=== PATIENT | female | born 1990 | race Caucasian/White ===

== ENCOUNTER 2022-03-06 20:05 | Emergency (ER) | payer SELFPAY ==
--- NOTE | 2022-03-06 21:08 | RAD REPORT ---
EXAM DESCRIPTION: RAD - Shoulder 1 View - 03/06/2022 8:39 pm CLINICAL HISTORY: PAIN COMPARISON: No comparisons FINDINGS/IMPRESSION: Left inferior and presumably anterior shoulder dislocation. Chronic either post traumatic or developmental deformity of the glenoid and humeral head is noted. No acute fracture.
[2022-03-06] MEDS ORDERED: MORPHINE 4 MG/ML SYR ONE (23:14)
[2022-03-06] MEDS ORDERED: ONDANSETRON 4 MG/2 ML VIAL ONE (23:14)
[2022-03-06] MEDS ORDERED: propofoL 200 MG/20 ML VIAL IV ONE ×2 (23:15→23:38)
[2022-03-06] MEDS ORDERED: MEPERIDINE HCL 25 MG/ML SYR ONE (23:56)
[2022-03-07] MEDS ORDERED: propofoL 200 MG/20 ML VIAL IV ONE (01:22)
[2022-03-07] MEDS ORDERED: NA CHLORIDE 0.9% 1,000 ML ONE (01:30)
[2022-03-07] MEDS ORDERED: MORPHINE 4 MG/ML SYR ONE ×3 (02:09→08:14)
--- NOTE | 2022-03-07 02:21 | ER ---
Nurse's Notes [facility] Name: Mary Kay Liu Age: 31 yrs Sex: Female : 1990 Arrival Date: 03/06/2022 Time: 20:13 Bed 20 Private MD: Diagnosis: Recurrent dislocation, left shoulder Presentation: 03/06 20:26 Chief complaint: Patient states: "I was carrying Laundry and I slipped. My shoulder is tw5 in a lot of pain.". Coronavirus screen: Vaccine status: Patient reports receiving the 2nd dose of the covid vaccine. [employer]. Ebola Screen: Patient negative for fever greater than or equal to 101.5 degrees Fahrenheit, and additional compatible Ebola Virus Disease symptoms Patient denies exposure to infectious person. Patient denies travel to an Ebola-affected area in the 21 days before illness onset. Initial Sepsis Screen: Does the patient meet any 2 criteria? No. Patient's initial sepsis screen is negative. Does the patient have a suspected source of infection? No. Patient's initial sepsis screen is negative. Risk Assessment: Do you want to hurt yourself or someone else? Patient reports no desire to harm self or others. Onset of symptoms. 20:26 Method Of Arrival: Ambulatory tw5 20:26 Acuity: RAYMOND 4 tw5 Triage Assessment: 20:28 General: Appears in no apparent distress. uncomfortable, Behavior is calm, cooperative, tw5 appropriate for age. Pain: Pain currently is 9 out of 10 on a pain scale. 03/07 09:03 Injury Description: Deformity. 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 - Social history:: Smoking status: Patient denies any tobacco usage or history of. - Family history:: not pertinent. - Hospitalizations: : No recent hospitalization is reported. Screenin:33 Abuse screen: Denies threats or abuse. Nutritional screening: No deficits noted. 1 Tuberculosis screening: No symptoms or risk factors identified. Fall Risk None identified. Assessment: 20:33 General: Appears in no apparent distress. Pain: Complains of pain in left shoulder. bh1 Cardiovascular: No deficits noted. Respiratory: No deficits noted. Musculoskeletal: Reports pain in left shoulder. 23:15 Reassessment: ERP at bedside performing conscious sedation - X ray at bedside. ld1 23:40 Reassessment: Xray confirmed shoulder was reduced. Pt verbalizing pain - notified ERP. ld1 See [facility] for orders. 03/07 00:29 Reassessment: Patient appears in no apparent distress at this time. Patient and/or jb4 family updated on plan of care and expected duration. Pain level reassessed. Patient is alert, oriented x 3, equal unlabored respirations, skin warm/dry/pink. Pt back from X-ray. 01:00 Reassessment: Patient appears in no apparent distress at this time. Patient and/or jb4 family updated on plan of care and expected duration. Pain level reassessed. Patient is alert, oriented x 3, equal unlabored respirations, skin warm/dry/pink. 02:10 Reassessment: Patient appears in no apparent distress at this time. Patient and/or jb4 family updated on plan of care and expected duration. Pain level reassessed. Patient is alert, oriented x 3, equal unlabored respirations, skin warm/dry/pink. Pt is now A\\T\\Ox4. 03:19 Reassessment: Patient and/or family updated on plan of care and expected duration. Pain ll3 level reassessed. Patient is alert, oriented x 3, equal unlabored respirations, skin warm/dry/pink. c/o pain 10/10, Dr. Solitario notified, medicated as ordered, tolerated well. 04:30 Reassessment: Patient and/or family updated on plan of care and expected duration. Pain ll3 level reassessed. Patient is alert, oriented x 3, equal unlabored respirations, skin warm/dry/pink. 05:30 Reassessment: Patient and/or family updated on plan of care and expected duration. Pain ll3 level reassessed. Patient is alert, oriented x 3, equal unlabored respirations, skin warm/dry/pink. 06:06 Reassessment: Nurse to Nurse report given to CHANTELLE Lima for patient transfer to [address] ER. 07:05 Reassessment: report received from CHANTELLE Brown. Transportation EMS should be here around 1 0730 for transfer. 08:00 Reassessment: No changes from previously documented assessment. Patient and/or family ll1 updated on plan of care and expected duration. Pain level reassessed. Patient is alert, oriented x 3, equal unlabored respirations, skin warm/dry/pink. Musculoskeletal: Circulation, motion, and sensation intact. Capillary refill < 3 seconds. Vital Signs: 03/06 20:23 BP 121 / 69; Pulse 91; Pulse Ox 96% on R/A; tw5 22:20 BP 128 / 68; Pulse 76; Resp 18; Temp 97.3; Pulse Ox 99% on R/A; bh1 23:13 BP 110 / 66; Pulse 93; Resp 18; Pulse Ox 98% on R/A; ld1 23:15 BP 101 / 61; Pulse 88; Resp 11; Pulse Ox 95% on R/A; ld1 23:30 BP 106 / 68; Pulse 89; Resp 20; Pulse Ox 97% on R/A; ld1 23:36 BP 106 / 68; Pulse 81; Resp 17; Pulse Ox 96% ; ld1 23:45 BP 104 / 83; Pulse 101; Resp 16; Pulse Ox 97% on R/A; ld1 23:53 BP 104 / 83; Pulse 101; Resp 18; Pulse Ox 100% on R/A; bh1 23:59 BP 104 / 83; Pulse 75; Resp 16; Pulse Ox 100% on R/A; ld1 03/07 01:00 BP 118 / 77; Pulse 73; Resp 16; Temp 97.8(TE); Pulse Ox 100% on R/A; jb4 02:10 BP 100 / 67; Pulse 59; Resp 18; Pulse Ox 97% on R/A; jb4 03:05 Weight 49.9 kg; mw2 03:19 BP 116 / 79; Pulse 65; Resp 14; Pulse Ox 98% on R/A; ll3 04:30 BP 103 / 64; Pulse 59; Resp 15; Pulse Ox 99% on R/A; ll3 05:30 BP 105 / 83; Pulse 58; Resp 16; Pulse Ox 99% on R/A; ll3 06:42 BP 111 / 74; Pulse 60; Resp 16; Pulse Ox 99% on R/A; ll3 07:57 BP 104 / 66; Pulse 54; Resp 15; Pulse Ox 99% ; ll1 09:02 BP 106 / 71; Pulse 54; Resp 16; Pulse Ox 100% on R/A; ll1 ED Course: 03/06 20:13 Patient arrived in ED. as 20:14 Rafael Solitario MD is Attending Physician. rn 20:17 Tarah Deleon, CHANTELLE is Primary Nurse. ld1 20:28 Triage completed. tw5 20:28 Arm band placed on. tw5 20:33 No apparent distress. Awaiting radiology results. bh1 20:33 Patient has correct armband on for positive identification. Pulse ox on. NIBP on. bh1 20:33 No provider procedures requiring assistance completed. Patient did not have IV access bh1 during this emergency room visit. 20:41 XRAY Shoulder (1 View) In Process Unspecified. EDMS 21:10 Missed attempt(s): 20 gauge in right antecubital area. ld1 21:16 Missed attempt(s): 20 gauge in right forearm. 22 gauge in right wrist. Bleeding bh1 controlled, band aid applied, catheter tip intact. 21:38 Missed attempt(s): 20 gauge in right antecubital area. mh5 21:39 Bed in low position. Call light in reach. Side rails up X 1. Warm blanket given. mh5 22:20 No apparent distress. Awaiting: IV FOR CONSCIOUS SEDATION. bh1 22:59 Missed attempt(s): 22 gauge in right forearm. Missed attempt(s): 24 gauge in right hand.lp1 23:00 Inserted saline lock: 20 gauge in left EJ, using aseptic technique. ld1 23:48 Shoulder 1 View In Process Unspecified. EDMS 23:54 Appears restless. Appears tearful. Awaiting for x-ray. 1 03/07 00:27 Shoulder 1 View In Process Unspecified. EDMS 02:34 Shoulder 1 View In Process Unspecified. EDMS 03:05 Report given to CHANTELLE Brown. jb4 03:09 initiated a transfer with [facility]. Phone kept ringing no one mw2 answered. 03:25 initiated a transfer with Cassandra from [facility] [place]. mw2 05:03 [facility] denied the transfer. mw2 05:03 initiated a transfer with Bobbi from [facility]. mw2 06:08 [facility] ETA 1 hour 30 minutes. mw2 06:09 Shoulder Left Wo Con In Process Unspecified. EDMS 09:11 Attending Physician role handed off by Rafael Solitario MD ll1 09:11 Primary Nurse role handed off by Tarah Deleon, CHANTELLE ll1 09:11 Mitchell Hopson, CHANTELLE is Primary Nurse. ll1 Administered Medications: 03/06 23:10 Drug: morphine 4 mg Route: IVP; Infused Over: 4 mins; Site: left jugular; ld1 23:53 Follow up: Response: No adverse reaction 1 23:10 Drug: Zofran (Ondansetron) 4 mg Route: IVP; Site: left jugular; ld1 23:48 Follow up: Response: No adverse reaction [facility] 23:10 Drug: Propofol 100 mg Route: IVP; Site: left jugular; ld1 23:36 Follow up: BP 106 / 68; Pulse 81 bpm; Resp 17 bpm; Pulse Ox 96% ; Response: No adverse ld1 reaction 23:53 Drug: Demerol (meperidine) 12.5 mg Route: IVP; Site: left jugular; 1 23:53 Follow up: Response: No adverse reaction [facility] 03/07 01:20 Drug: NS 0.9% 1000 ml Route: IV; Rate: 1 bolus; Site: left jugular; jb4 02:30 Follow up: Response: No adverse reaction; IV Status: Completed infusion jb4 01:53 Drug: Propofol 130 mg Route: IVP; Site: left jugular; jb4 02:29 Follow up: Response: No adverse reaction jb4 02:10 Drug: morphine 4 mg Route: IVP; Infused Over: 4 mins; Site: left jugular; jb4 02:20 Follow up: Response: No adverse reaction; Marked relief of symptoms; Pain is decreased jb4 03:19 Drug: Demerol (meperidine) 25 mg Route: IVP; Site: left jugular; ll3 06:38 Follow up: Response: No adverse reaction ll3 05:31 Drug: fentaNYL (PF) 50 mcg Route: IVP; Site: left jugular; tw5 06:38 Follow up: Response: No adverse reaction ll3 05:55 Drug: fentaNYL (PF) 50 mcg Route: IVP; Site: left jugular; tw5 06:48 Follow up: Response: No adverse reaction ll3 06:48 Drug: morphine 4 mg Route: IVP; Infused Over: 4 mins; Site: left jugular; ll3 07:59 Follow up: Response: No adverse reaction; Pain is decreased; RASS: Alert and Calm (0) ll1 08:16 Drug: Zofran (Ondansetron) 4 mg Route: IVP; Site: left jugular; ll1 09:03 Follow up: Response: No adverse reaction ll1 08:18 CANCELLED (incorrect MD): morphine 4 mg IVP once over 4 mins ll1 08:18 CANCELLED (incorrect MDd): Zofran (Ondansetron) 4 mg IVP once; over 2 minutes ll1 08:18 Drug: morphine 4 mg {Note: pain 8/10. RASS 0.} Route: IVP; Infused Over: 4 mins; Site: ll1 left jugular; 09:03 Follow up: Response: No adverse reaction ll1 09:11 Drug: Dilaudid (HYDROmorphone) 1 mg Route: IVP; Site: left jugular; 1 09:12 Follow up: Response: No adverse reaction [facility] Medication: 03/06 20:33 VIS not applicable for this client. [facility] Outcome: 18 02:21 ER care complete, transfer ordered by . rn 09:02 Transferred by ground EMS to [facility], Transfer form completed. X-rays sent ll1 w/ patient. 09:02 Condition: stable 09:02 Instructed on the need for transfer. 09:04 Patient left the ED. ll1 09:12 Patient left the ED. 1 Signatures: Dispatcher [employer] Virginia Chambesr Roman, MD MD rn Pena, Laura, RN RN 1 Len Abraham RN RN 4 Laly Gaspar 5 Giacomo Flor 2 Mitchell Hopson RN RN ll1 Tarah Deleon RN RN ld1 Khalida Villagomez 5 Kevin Weinstein RN RN ll3 Criss Daly RN RN [facility]
--- NOTE | 2022-03-07 02:21 | EDPHYS ---
Physician Documentation [facility] Name: Mary Kay Liu Age: 31 yrs Sex: Female : 1990 Arrival Date: 03/06/2022 Time: 20:13 Bed 20 Private MD: ED Physician HPI: 03/06 20:19 This 31 yrs old Female presents to ER via Unassigned with complaints of Shoulder Injury.rn 20:19 The patient or guardian complains of decreased range of motion, an injury, pain. left rn shoulder. Onset: The symptoms/episode began/occurred today. Modifying factors: the symptoms are alleviated by nothing. The symptoms are aggravated by movement, rotation of arm. Associated signs and symptoms: Pertinent negatives: chest pain, neck pain, tingling. Severity of symptoms: At their worst the symptoms were moderate, in the emergency department the symptoms are unchanged. The patient has not experienced similar symptoms in the past. The patient has not recently seen a physician. Pt reports fall from standing, left arm outstretched, + left shoulder pain with painful ROM. Has had labrum repair on left shoulder before. . 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 - Social history:: Smoking status: Patient denies any tobacco usage or history of. - Family history:: not pertinent. - Hospitalizations: : No recent hospitalization is reported. ROS: 20:19 Constitutional: Negative for fever, chills, and weight loss, Neck: Negative for injury, rn pain, and swelling, Cardiovascular: Negative for chest pain, palpitations, and edema, Respiratory: Negative for shortness of breath, cough, wheezing, and pleuritic chest pain, Abdomen/GI: Negative for abdominal pain, nausea, vomiting, diarrhea, and constipation, MS/Extremity: + left shoulder injury and pain Skin: Negative for injury, rash, and discoloration, Neuro: Negative for headache, weakness, numbness, tingling, and seizure. Exam: 20:19 Constitutional: This is a well developed, well nourished patient who is awake, alert, rn left arm held in passive flexion. Ambulatory. Neck: NO cervical tenderness Chest/axilla: No tenderness of chest wall or clavicle. Skin: NO open wounds. MS/ Extremity: Pulses equal, no cyanosis. Neurovascular intact. + mild swelling and fullness anterior left shoulder, arm in passive flexion, no painful ROM at hand/wrist/elbow. Vital Signs: 20:23 BP 121 / 69; Pulse 91; Pulse Ox 96% on R/A; tw5 22:20 BP 128 / 68; Pulse 76; Resp 18; Temp 97.3; Pulse Ox 99% on R/A; bh1 23:13 BP 110 / 66; Pulse 93; Resp 18; Pulse Ox 98% on R/A; ld1 23:15 BP 101 / 61; Pulse 88; Resp 11; Pulse Ox 95% on R/A; ld1 23:30 BP 106 / 68; Pulse 89; Resp 20; Pulse Ox 97% on R/A; ld1 23:36 BP 106 / 68; Pulse 81; Resp 17; Pulse Ox 96% ; ld1 23:45 BP 104 / 83; Pulse 101; Resp 16; Pulse Ox 97% on R/A; ld1 23:53 BP 104 / 83; Pulse 101; Resp 18; Pulse Ox 100% on R/A; bh1 23:59 BP 104 / 83; Pulse 75; Resp 16; Pulse Ox 100% on R/A; ld1 03/07 01:00 BP 118 / 77; Pulse 73; Resp 16; Temp 97.8(TE); Pulse Ox 100% on R/A; jb4 02:10 BP 100 / 67; Pulse 59; Resp 18; Pulse Ox 97% on R/A; jb4 03:05 Weight 49.9 kg; mw2 03:19 BP 116 / 79; Pulse 65; Resp 14; Pulse Ox 98% on R/A; ll3 04:30 BP 103 / 64; Pulse 59; Resp 15; Pulse Ox 99% on R/A; ll3 05:30 BP 105 / 83; Pulse 58; Resp 16; Pulse Ox 99% on R/A; ll3 06:42 BP 111 / 74; Pulse 60; Resp 16; Pulse Ox 99% on R/A; ll3 07:57 BP 104 / 66; Pulse 54; Resp 15; Pulse Ox 99% ; ll1 09:02 BP 106 / 71; Pulse 54; Resp 16; Pulse Ox 100% on R/A; ll1 Procedures: 03/06 23:39 Reduction: of the left shoulder, using traction, manipulation, External rotation with rn countertraction, Immobilized with sling, Patient tolerated well. Post reduction film - reveals improved alignment. Moderate sedation: Pre-procedure assessment: the patient has been NPO 6 hour(s) prior to arrival, ASA physical classification: I - healthy, no underlying organic disease, Airway assessment: able to hyperextend neck, able to maintain airway, can open mouth without difficulty, Monitoring during procedure: athletic monitor, continuous pulse oximetry, nurse at bedside at all times, Medications employed: morphine, 4 mg(s), propofol, Post-procedure assessment: the patient is mildly sedated, Respiratory status: even and unlabored, a reversal agent was not used. MDM: 20:14 Patient medically screened. rn 21:15 ED course: Nursing unable to obtain IV, once placed, will perform moderate sedation and rn reduction. 23:06 ED course: dials supervisor obtained IV, now can do sedation for reduction.. rn 03/07 00:46 ED course: S/p reduction ROM was improved and xray confirmed reduced, shortly after rn patient reporting more pain, new xray performed, shows likely dislocation still, possibly came back out with suspected labrum injury, will attempt reduction once again.. 02:07 ED course: repeat reduction unsuccessful, patient with extreme laxity, seems to be in rn then xray shows still out. . 02:19 ED course: Consulted with Dr. Russ, states seems complicated, sounds like needs recovery rn repair if continues to dislocate, states if saw her in clinic would refer to another ortho, so recommends transfer. Does not think another reduction would help and likely going to dislocate again. Will initiate transfer. . 04:25 ED course: Consulted with Ortho at [facility] who says the same thing, likely abnormal rn anatomy and would not feel comfortable taking patient, refers me to get CT and to transfer to [facility] for shoulder specialist. . 05:02 ED course: [facility] unable to accommodate transfer due to capacity, rn unable to take patient until after 0800. Will try another facility. . 05:39 Differential diagnosis: Anterior dislocation with fracture, Anterior dislocation rn without fracture, humeral head fracture, glenoid fracture. Data reviewed: vital signs, nurses notes, radiologic studies, plain films, and as a result, I will admit patient. Counseling: I had a detailed discussion with the patient and/or guardian regarding: the historical points, exam findings, and any diagnostic results supporting the discharge/admit diagnosis, radiology results, the need to transfer to another facility, for higher level of care. Response to treatment: the patient's symptoms have mildly improved after treatment, and as a result, I will admit patient. ED course: Accepted for transfer to [facility] without consultation.. 03/07 02:47 Order name: Glucose, Ancillary Testing; Complete Time: 03:39 [facility] 03/07 03:30 Order name: COVID-19 SARS RT PCR (Document "Date of Onset" if Symptomatic); Complete mw2 Time: 05:01 03/06 20:18 Order name: XRAY Shoulder (1 View); Complete Time: 21:13 rn 03/06 23:48 Order name: Shoulder 1 View [facility] 03/07 00:21 Order name: Shoulder 1 View [facility] 03/07 02:29 Order name: Shoulder 1 View [facility] 03/07 04:34 Order name: Shoulder Left Wo Con [facility] 03/06 20:18 Order name: NPO; Complete Time: 20:21 rn 03/06 22:56 Order name: IV Start; Complete Time: 00:01 rn Administered Medications: 03/06 23:10 Drug: morphine 4 mg Route: IVP; Infused Over: 4 mins; Site: left jugular; ld1 23:53 Follow up: Response: No adverse reaction 1 23:10 Drug: Zofran (Ondansetron) 4 mg Route: IVP; Site: left jugular; ld1 23:48 Follow up: Response: No adverse reaction 1 23:10 Drug: Propofol 100 mg Route: IVP; Site: left jugular; ld1 23:36 Follow up: BP 106 / 68; Pulse 81 bpm; Resp 17 bpm; Pulse Ox 96% ; Response: No adverse ld1 reaction 23:53 Drug: Demerol (meperidine) 12.5 mg Route: IVP; Site: left jugular; bh1 23:53 Follow up: Response: No adverse reaction [facility] 03/07 01:20 Drug: NS 0.9% 1000 ml Route: IV; Rate: 1 bolus; Site: left jugular; jb4 02:30 Follow up: Response: No adverse reaction; IV Status: Completed infusion jb4 01:53 Drug: Propofol 130 mg Route: IVP; Site: left jugular; jb4 02:29 Follow up: Response: No adverse reaction jb4 02:10 Drug: morphine 4 mg Route: IVP; Infused Over: 4 mins; Site: left jugular; jb4 02:20 Follow up: Response: No adverse reaction; Marked relief of symptoms; Pain is decreased jb4 03:19 Drug: Demerol (meperidine) 25 mg Route: IVP; Site: left jugular; ll3 06:38 Follow up: Response: No adverse reaction ll3 05:31 Drug: fentaNYL (PF) 50 mcg Route: IVP; Site: left jugular; tw5 06:38 Follow up: Response: No adverse reaction ll3 05:55 Drug: fentaNYL (PF) 50 mcg Route: IVP; Site: left jugular; tw5 06:48 Follow up: Response: No adverse reaction ll3 06:48 Drug: morphine 4 mg Route: IVP; Infused Over: 4 mins; Site: left jugular; ll3 07:59 Follow up: Response: No adverse reaction; Pain is decreased; RASS: Alert and Calm (0) ll1 08:16 Drug: Zofran (Ondansetron) 4 mg Route: IVP; Site: left jugular; ll1 09:03 Follow up: Response: No adverse reaction ll1 08:18 CANCELLED (incorrect MD): morphine 4 mg IVP once over 4 mins ll1 08:18 CANCELLED (incorrect MDd): Zofran (Ondansetron) 4 mg IVP once; over 2 minutes ll1 08:18 Drug: morphine 4 mg {Note: pain 8/10. RASS 0.} Route: IVP; Infused Over: 4 mins; Site: ll1 left jugular; 09:03 Follow up: Response: No adverse reaction ll1 09:11 Drug: Dilaudid (HYDROmorphone) 1 mg Route: IVP; Site: left jugular; ll1 09:12 Follow up: Response: No adverse reaction ll1 Disposition Summary: 03/07/22 02:21 Transfer Ordered Transfer Location: [facility] rn Reason: Higher level of care rn Condition: Stable rn Problem: new rn Symptoms: are unchanged rn Accepting Physician: (03/07/22 09:12) ll1 Diagnosis - Recurrent dislocation, left shoulder rn Forms: - Medication Reconciliation Form rn - SBAR form rn Signatures: Dispatcher [employer] EDMS Rafael Solitario MD MD rn Bryson, James RN CHANTELLE jb4 Mitchell Hopson RN RN ll1 Tarah Deleon RN RN ld1 Khalida Villagomez tw5 Kevin Weinstein RN RN ll3 Criss Daly RN RN 1 Corrections: (The following items were deleted from the chart) 03/06 23:48 23:22 Shoulder Left 2 View+RAD.RAD.BRZ ordered. EDTN EDMS 03/07 02:27 02:07 Shoulder 1 View ordered. EDTN EDTN : 08:17 morphine 4 mg IVP once over 4 mins ordered. [place] [id number] 08:18 08:17 Zofran (Ondansetron) 4 mg IVP once; over 2 minutes [place]. [place] [id number] 09:04 02:21 Dr. cesar 1 09:12 09:04 Dr. cast [facility]
[2022-03-07] MEDS ORDERED: MEPERIDINE HCL 25 MG/ML SYR ONE (03:20)
[2022-03-07] MEDS ORDERED: FENTANYL CITR 100 MCG/2 ML ONE (05:33)
[2022-03-07] MEDS ORDERED: ONDANSETRON 4 MG/2 ML VIAL ONE (08:14)
[2022-03-07] MEDS ORDERED: HYDROMORPHONE HCL 1 MG/ML INJ ONE (09:14)
[2022-03-07 09:49] VITALS: TEMP 97.8
[2022-03-07 09:59] VITALS: BP 106/71; O2SAT 100
--- NOTE | 2022-03-09 10:55 | RAD REPORT ---
EXAM DESCRIPTION: Single view left AP shoulder radiograph CLINICAL HISTORY: PAIN. COMPARISON: None. TECHNIQUE: Single view left AP shoulder radiograph. FINDINGS: No acute fracture identified. Chronic mild deformity of the proximal left humeral shaft, p ossibly sequela of remote prior trauma. Glenohumeral joint alignment is maintained. No acromioclavicu lar joint widening. IMPRESSION: No acute osseous abnormality identified. Electronically signed by: Bonnie Gomez MD 03/07/2022 12:22 AM CDT Due to temporary technical issues with the PACS/Fluency reporting system, reports are being signed by the in house radiologist without review as a courtesy to ensure prompt reporting. The interpreting r adiologist is fully responsible for the content of the report.
--- NOTE | 2022-03-09 10:56 | RAD REPORT ---
EXAM DESCRIPTION: Left shoulder radiograph CLINICAL HISTORY: POST REDUCTION. COMPARISON: Left shoulder radiograph from March 06, 2022. TECHNIQUE: Single transscapular Y view of the left shoulder. FINDINGS: Despite the alignment appearance on the prior AP radiograph, this transscapular Y radiogra ph has the appearance of anterior glenohumeral dislocation. No acute fracture identified. IMPRESSION: Suspected persistent anterior glenohumeral dislocation. Consider correlation with axilla ry view if possible. Electronically signed by: Bonnie Gomez MD 03/07/2022 12:42 AM CDT Due to temporary technical issues with the PACS/Fluency reporting system, reports are being signed by the in house radiologist without review as a courtesy to ensure prompt reporting. The interpreting r adiologist is fully responsible for the content of the report.
--- NOTE | 2022-03-09 11:04 | RAD REPORT ---
EXAM DESCRIPTION: XR Left Shoulder, 1 View CLINICAL HISTORY: POST REDUCTION TECHNIQUE: One view of the left shoulder. COMPARISON: XR Shoulder dated 03/07/2022 FINDINGS: Bones/joints: Interval reduction of the anterior inferior humeral head dislocation. Poss ible remote Hill-Sachs fracture. Soft tissues: Unremarkable. IMPRESSION: Interval reduction of the humeral head dislocation. Electronically signed by: Trupti Blackburn MD 03/07/2022 3:30 AM CDT Due to temporary technical issues with the PACS/Fluency reporting system, reports are being signed by the in house radiologist without review as a courtesy to ensure prompt reporting. The interpreting r adiologist is fully responsible for the content of the report.
--- NOTE | 2022-03-09 11:36 | RAD REPORT ---
EXAM DESCRIPTION: CT LEFT UPPER EXTREMITY WITHOUT INTRAVENOUS CONTRAST SHOULDER CLINICAL HISTORY: The patient is 31 years old and is Female; dislocated shoulder [facility] MAIN TECHNIQUE: Axial computed tomography images of the left shoulder without intravenous contrast. Sag ittal and coronal reformatted images were created and reviewed. This CT exam was performed using on e or more of the following dose reduction techniques: automated exposure control, adjustment of the mA and/or kV according to patient size, and/or use of iterative reconstruction technique. DICOM im ages are available. 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 Abundant glenoid subcortical degenerative cysts centrally and inferiorly compatible with art hritic change. No fracture. SOFT TISSUES: Unremarkable. LUNG APICES: Left basilar atelectasis. IMPRESSION: 1. 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 Recommend shoul britney MRI for further evaluation. 2. Abundant glenoid subcortical degenerative cysts centrally and inferiorly compatible with arthrit ic change. Electronically signed by: Puneet Cain MD 03/07/2022 8:00 AM CDT Due to temporary technical issues with the PACS/Fluency reporting system, reports are being signed by the in house radiologist without review as a courtesy to ensure prompt reporting. The interpreting r adiologist is fully responsible for the content of the report.
== END 2022-03-07 09:12 | disposition short-term general hospital (02) ==
LOC: ER 20:05
PROC: 0RSKXZZ Reposition Left Shoulder Joint, External Approach (ICD-10-PCS; principal; 2022-03-06)
DX: M24.412 Recurrent dislocation, left shoulder (principal); Z20.822 Contact with and (suspected) exposure to COVID-19
CPT/HCPCS: 73020; 73200; 82947; 96361; 96374; 96375; 99285; J1170; J2175; J2405; J2704; J3010; J7030; U0003